=== PATIENT | female | born 1970 | race Caucasian/White ===

== ENCOUNTER 2018-04-15 19:29 | Emergency (ER) | payer OTHER ==
[~2018-04-15] VITALS: Ht 157.5 cm; Wt 146.1 kg
--- NOTE | 2018-04-15 19:32 | ED.ADGEN ---
Past History Past Medical History: Anemia, Anxiety, Arthritis, Asthma, Cancer, Constipation , GERD, Migraines, Other Additional Past Medical Histor: Morbid Obesity BMI 50. 0 - 59.9, Hx. Atypical CP, Chest wall pain, Past Medical History Compression fx- end plate T 12 Past Surgical History: No Surgical History Alcohol Use: None Drug Use: None Adult General Chief Complaint Chief Complaint ".. I fell .. and hurt this Rt shoulder and back... I was on the way to bathroom.. I was using my Dads walker.. I tripped and fell.. I still hurt..I took all the left over pain meds that I ve had.... and I still hurt.... "" ..I was recently at [facility] for two days... they did nothing for me.... ". " I fell on Sat. in the morning.. " HPI HPI Patient is a 47 year old female who presents with above hx and complaints chest wall and back pain. Pt. is somewhat uncooperative poor historian after taken multiple pain meds and muscle relaxers at home prior to arrival. Pt. recently admitted at [facility] for atypical chest and back pain. Pt. admitted on 2018 and discharged on per her hx today???. Pt. normally follows with Dr. Coy. Will attempt to get records from [facility]. Pt. currently reports back and chest pain as 20/10. States any movement is pain. Pt . pain appears to be Thoracic and Rt. Posterior Chest wall and Shoulder blade. Review of Systems Review of Systems Constitutional: Denies fever or chills [] Eyes: Denies change in visual acuity, redness, or eye pain [] HENT: Denies nasal congestion or sore throat [] Respiratory: Denies cough or shortness of breath []Complaints of Lt chest wall pain. Cardiovascular: No additional information not addressed in HPI [] GI: Denies abdominal pain, nausea, vomiting, bloody stools or diarrhea [] : Denies dysuria or hematuria [] Musculoskeletal: Complains of thoracic back pain or joint pain []Complaints of Lt scapular pain. Complaints of generalized weakness because of pain. Integument: Denies rash or skin lesions [] Neurologic: Denies headache, focal weakness or sensory changes [] Endocrine: Denies polyuria or polydipsia [] All other systems were reviewed and found to be within normal limits, except as documented in this note. Family History Family History No contributory Current Medications Current Medications Current Medications Medications (Trade) Dose Ordered Sig/Franci Start Time Stop Time Status Last Admin Dose Admin Aspirin (Children'S Aspirin) 324 mg 1X ONCE 04/15/18 20:15 04/15/18 20:16 DC 04/15/18 20:57 324 MG Enoxaparin Sodium (Lovenox 150mg Syringe) 150 mg ONCE ONCE 04/15/18 22:15 04/15/18 22:17 DC 04/15/18 22:24 150 MG Info (Do NOT chart on this entry -- for MONITORING) 1 each PRN DAILY PRN 04/15/18 20:15 04/15/18 23:33 DC Iohexol (Omnipaque 350 Mg/ml) 100 ml 1X ONCE 04/15/18 20:00 04/15/18 20:01 DC 04/15/18 20:28 100 ML Lactated Ringer's 1,000 ml @ 100 mls/hr Q10H 04/15/18 19:42 04/15/18 23:33 DC 04/15/18 20:57 100 MLS/HR Morphine Sulfate (Morphine 10mg Syringe) 10 mg 1X ONCE 04/15/18 20:15 04/15/18 20:16 DC 04/15/18 20:57 10 MG Allergies Allergies Allergies Coded Allergies Type Severity Reaction Last Updated Verified No Known Drug Allergies 04/15/18 No Physical Exam Physical Exam Constitutional: , no acute distress, appearance. of over sedation. When stimulated her pain is 100/10. Pt. does fall back to sleep . HENT: Normocephalic, atraumatic, bilateral external ears normal, oropharynx moist, no oral exudates, nose normal. [] Eyes: PERRLA, EOMI, conjunctiva normal, no discharge. [] Neck: Normal range of motion, no tenderness, supple, no stridor. [] Cardiovascular:Tachycardia Heart rate regular rhythm, no murmur [PMI to Lt. ] Lungs & Thorax: Bilateral breath sounds equal at apexes, with bibasilar crackles on auscultation [] Abdomen: Bowel sounds normal, soft, no tenderness, no masses, no pulsatile masses. Obese. Skin: Warm, dry, no erythema, no rash. [] Back: Mid Thoracic and Rt. shoulder tenderness, no CVA tenderness. [] Extremities: No tenderness, no cyanosis, no clubbing, ROM intact, bilateral ankle edema. [] Neurologic: Alert and oriented X 3, but appears very sedated, moves ext. on request, no gross focal deficits noted. []DTRs +2 patella and brachial. Psychologic: Affect anxious, appears over sedated., mood depressed Current Patient Data Vital Signs Vital Signs Date Time Temp Pulse Resp B/P (MAP) Pulse Ox O2 Delivery O2 Flow Rate FiO2 04/15/18 21:44 104 18 104/71 (82) 93 Room Air 04/15/18 19:29 99.8 Lab Results Laboratory Tests Test 04/15/18 20:15 White Blood Count 8.5 x10^3/uL (4.0-11.0) Red Blood Count 4.33 x10^6/uL (3.50-5.40) Hemoglobin 12.6 g/dL (12.0-15.5) Hematocrit 37.5 % (36.0-47.0) Mean Corpuscular Volume 87 fL (79-100) Mean Corpuscular Hemoglobin 29 pg (25-35) Mean Corpuscular Hemoglobin Concent 34 g/dL (31-37) Red Cell Distribution Width 13.7 % (11.5-14.5) Platelet Count 238 x10^3/uL (140-400) Neutrophils (%) (Auto) 84 % (31-73) H Lymphocytes (%) (Auto) 7 % (24-48) L Monocytes (%) (Auto) 8 % (0-9) Eosinophils (%) (Auto) 1 % (0-3) Basophils (%) (Auto) 0 % (0-3) Neutrophils # (Auto) 7.1 x10^3uL (1.8-7.7) Lymphocytes # (Auto) 0.6 x10^3/uL (1.0-4.8) L Monocytes # (Auto) 0.7 x10^3/uL (0.0-1.1) Eosinophils # (Auto) 0.1 x10^3/uL (0.0-0.7) Basophils # (Auto) 0.0 x10^3/uL (0.0-0.2) Prothrombin Time 10.5 SEC (9.4-11.4) Prothrombin Time INR 1.1 (0.9-1.1) PTT 30 SEC (23-33) D-Dimer (Verna) 2.37 mg/L (0.00-0.50) H Urine Collection Type Unknown Urine Color Yellow Urine Clarity Clear Urine pH 6.0 Urine Specific [place] >=1.030 Urine Protein 30 mg/dl (NEG-TRACE) Urine Glucose (UA) Neg mg/dL (NEG) Urine Ketones (Stick) 15 mg/dL (NEG) Urine Blood Neg (NEG) Urine Nitrite Neg (NEG) Urine Bilirubin Neg (NEG) Urine Urobilinogen Dipstick 2 mg/dL (0.2 mg/dL) Urine Leukocyte Esterase Neg (NEG) Urine RBC Occ /HPF (0-2) Urine WBC 1-4 /HPF (0-4) Urine Squamous Epithelial Cells Mod /LPF Urine Bacteria 0 /HPF (0-FEW) Urine Hyaline Casts Occ /HPF Urine Mucus Mod /LPF Sodium Level 132 mmol/L (136-145) L Potassium Level 3.8 mmol/L (3.5-5.1) Chloride Level 95 mmol/L (98-107) L Carbon Dioxide Level 27 mmol/L (21-32) Anion Gap 10 (6-14) Blood Urea Nitrogen 11 mg/dL (7-20) Creatinine 1.0 mg/dL (0.6-1.0) Estimated GFR (Cockcroft-Gault) 59.4 Glucose Level 103 mg/dL (70-99) H Calcium Level 8.9 mg/dL (8.5-10.1) Magnesium Level 1.9 mg/dL (1.8-2.4) Total Bilirubin 0.8 mg/dL (0.2-1.0) Direct Bilirubin 0.4 mg/dL (0.0-0.2) H Aspartate Amino Transferase (AST) 32 U/L (15-37) Alanine Aminotransferase (ALT) 35 U/L (14-59) Alkaline Phosphatase 98 U/L (46-116) Creatine Kinase 264 U/L (26-192) H Troponin I Quantitative < 0.017 ng/mL (0-0.055) IB-Ucl-Q-Type Natriuretic Peptide 341 pg/mL (0-124) H Total Protein 7.9 g/dL (6.4-8.2) Albumin 3.1 g/dL (3.4-5.0) L Lipase 56 U/L (73-393) L Urine Opiates Screen Pos (NEG) Urine Methadone Screen Neg (NEG) Urine Barbiturates Neg (NEG) Urine Phencyclidine Screen Neg (NEG) Urine Amphetamine/Methamphetamine Neg (NEG) Urine Benzodiazepines Screen Neg (NEG) Urine Cocaine Screen Neg (NEG) Urine Cannabinoids Screen Neg (NEG) Urine Ethyl Alcohol Neg (NEG) EKG EKG My interpretation of EKG shows a sinus tachycardia 110 bpm. There is some nonspecific anterior septal changes but no findings acute STEMI with contralateral changes.[] Radiology/Procedures Radiology/Procedures My interpretation of chest x-ray shows cardiomegaly. There does appear to be some linear atelectasis. CT shows no significant vertebral body loss or displaced fracture. Osteophytes, appears to have. In plate defect no one or T 12. No findings of PE. Does have bilateral atelectasis of lungs, chronic degenerative joint changes.[] See formal report when available. Course & Med Decision Making Course & Med Decision Making Pertinent Labs and Imaging studies reviewed. (See chart for details) Still awaiting records - [facility]. Pt. unable to stand or be ambulatory after meds. Discussed presentation, testing and tx plan with Dr. Prateek- will transfer to [facility] for further eval., possible orthro. consult, MRI. Pt. may need US to rule out DVT. No obvious PE on current CT. Formal report pending. [] Final Impression Final Impression 1. Hx. Fall[] Sat. 12/19 2. Atypical Chest Wall Pain 3. Thoracic Spine - Hx. T 12- L1 end plate compression fx. 4. Elevated D-dimer 2.32 5. Morbid Obesity 6. Over Sedation 7. Inability to Stand- and Ambulate due to back and chest wall pain 8. Malnutrition Alb. 3.1 9. Marked Deconditioning Dragon Disclaimer Dragon Disclaimer This electronic medical record was generated, in whole or in part, using a voice recognition dictation system. Dragon Disclaimer This chart was dictated in whole or in part using Voice Recognition software in a busy, high-work load, and often noisy Emergency Department environment. It may contain unintended and wholly unrecognized errors or omissions. Discharge Summary Visit Information Final Diagnosis Problems Medical Problems: (1) Back pain Status: Acute Brief Hospital Course Allergies Allergies Coded Allergies Type Severity Reaction Last Updated Verified No Known Drug Allergies 04/15/18 No Vital Signs Vital Signs Date Time Temp Pulse Resp B/P (MAP) Pulse Ox O2 Delivery O2 Flow Rate FiO2 04/15/18 21:44 104 18 104/71 (82) 93 Room Air 04/15/18 19:29 99.8 Lab Results Laboratory Tests Test 04/15/18 20:15 White Blood Count 8.5 x10^3/uL (4.0-11.0) Red Blood Count 4.33 x10^6/uL (3.50-5.40) Hemoglobin 12.6 g/dL (12.0-15.5) Hematocrit 37.5 % (36.0-47.0) Mean Corpuscular Volume 87 fL (79-100) Mean Corpuscular Hemoglobin 29 pg (25-35) Mean Corpuscular Hemoglobin Concent 34 g/dL (31-37) Red Cell Distribution Width 13.7 % (11.5-14.5) Platelet Count 238 x10^3/uL (140-400) Neutrophils (%) (Auto) 84 % (31-73) Lymphocytes (%) (Auto) 7 % (24-48) Monocytes (%) (Auto) 8 % (0-9) Eosinophils (%) (Auto) 1 % (0-3) Basophils (%) (Auto) 0 % (0-3) Neutrophils # (Auto) 7.1 x10^3uL (1.8-7.7) Lymphocytes # (Auto) 0.6 x10^3/uL (1.0-4.8) Monocytes # (Auto) 0.7 x10^3/uL (0.0-1.1) Eosinophils # (Auto) 0.1 x10^3/uL (0.0-0.7) Basophils # (Auto) 0.0 x10^3/uL (0.0-0.2) Prothrombin Time 10.5 SEC (9.4-11.4) Prothromb Time International Ratio 1.1 (0.9-1.1) Activated Partial Thromboplast Time 30 SEC (23-33) D-Dimer (Verna) 2.37 mg/L (0.00-0.50) Urine Collection Type Unknown Urine Color Yellow Urine Clarity Clear Urine pH 6.0 Urine Specific [place] >=1.030 Urine Protein 30 mg/dl (NEG-TRACE) Urine Glucose (UA) Neg mg/dL (NEG) Urine Ketones (Stick) 15 mg/dL (NEG) Urine Blood Neg (NEG) Urine Nitrite Neg (NEG) Urine Bilirubin Neg (NEG) Urine Urobilinogen Dipstick 2 mg/dL (0.2 mg/dL) Urine Leukocyte Esterase Neg (NEG) Urine RBC Occ /HPF (0-2) Urine WBC 1-4 /HPF (0-4) Urine Squamous Epithelial Cells Mod /LPF Urine Bacteria 0 /HPF (0-FEW) Urine Hyaline Casts Occ /HPF Urine Mucus Mod /LPF Sodium Level 132 mmol/L (136-145) Potassium Level 3.8 mmol/L (3.5-5.1) Chloride Level 95 mmol/L (98-107) Carbon Dioxide Level 27 mmol/L (21-32) Anion Gap 10 (6-14) Blood Urea Nitrogen 11 mg/dL (7-20) Creatinine 1.0 mg/dL (0.6-1.0) Estimated GFR (Cockcroft-Gault) 59.4 Glucose Level 103 mg/dL (70-99) Calcium Level 8.9 mg/dL (8.5-10.1) Magnesium Level 1.9 mg/dL (1.8-2.4) Total Bilirubin 0.8 mg/dL (0.2-1.0) Direct Bilirubin 0.4 mg/dL (0.0-0.2) Aspartate Amino Transf (AST/SGOT) 32 U/L (15-37) Alanine Aminotransferase (ALT/SGPT) 35 U/L (14-59) Alkaline Phosphatase 98 U/L (46-116) Creatine Kinase 264 U/L (26-192) Troponin I Quantitative < 0.017 ng/mL (0-0.055) OB-Wza-L-Type Natriuretic Peptide 341 pg/mL (0-124) Total Protein 7.9 g/dL (6.4-8.2) Albumin 3.1 g/dL (3.4-5.0) Lipase 56 U/L (73-393) Urine Opiates Screen Pos (NEG) Urine Methadone Screen Neg (NEG) Urine Barbiturates Neg (NEG) Urine Phencyclidine Screen Neg (NEG) Urine Amphetamine/Methamphetamine Neg (NEG) Urine Benzodiazepines Screen Neg (NEG) Urine Cocaine Screen Neg (NEG) Urine Cannabinoids Screen Neg (NEG) Urine Ethyl Alcohol Neg (NEG) Brief Hospital Course Ms. Appiah is a 47 old female who presented with atypical chest pain and mid back pain. Has end plate compression Fx L1/T12. Inability to ambulate because of pain- transfer to [facility] for further eval. Possible MRI. Transfer to Dr. Chandra. Discharge Information Condition at Discharge: Stable Disposition/Orders: D/C to Another Facility Dischare Medications Current Medications Aspirin (Children'S Aspirin) 324 mg 1X ONCE PO Last administered on 04/15/18at 20:57; Admin Dose 324 MG; Start 04/15/18 at 20:15; Stop 04/15/18 at 20:16; Status DC Lactated Ringer's 1,000 ml @ 100 mls/hr Q10H IV Last administered on at 20:57; Admin Dose 100 MLS/HR; Start 04/15/18 at 19:42; Stop 04/15/18 at 23: 33; Status DC Morphine Sulfate (Morphine 10mg Syringe) 10 mg 1X ONCE SQ Last administered on 04/15/18at 20:57; Admin Dose 10 MG; Start 04/15/18 at 20:15; Stop 04/15/18 at 20:16; Status DC Iohexol (Omnipaque 350 Mg/ml) 100 ml 1X ONCE IV Last administered on at 20:28; Admin Dose 100 ML; Start 04/15/18 at 20:00; Stop 04/15/18 at 20:01; Status DC Info (Do NOT chart on this entry -- for MONITORING) 1 each PRN DAILY PRN MC SEE COMMENTS; Start 04/15/18 at 20:15; Stop 04/15/18 at 23:33; Status DC Enoxaparin Sodium (Lovenox 150mg Syringe) 150 mg ONCE ONCE SQ Last administered on 04/15/18at 22:24; Admin Dose 150 MG; Start 04/15/18 at 22:15; Stop 04/15/18 at 22:17; Status DC Active Scripts Active Reported No Known Medications Prior To Admisstion (Info) Each 1 Each RICH PEPPER MD Apr 15, 2018 19:32
[2018-04-15] MEDS ORDERED: CONTRAST GIVEN MC PRN (20:15)
[2018-04-15] MEDS: IOHEXOL 350 MG/ML 100 ML VIAL. IV ONE (20:28)
[2018-04-15 20:36] LABS: BASO % 0 % (0-3); EOS # 0.1 x10^3/uL (0.0-0.7); EOS % 1 % (0-3); HEMATOCRIT 37.5 % (36.0-47.0); HEMOGLOBIN 12.6 g/dL (12.0-15.5); LYMPH # 0.6 x10^3/uL (1.0-4.8); LYMPH % 7 % (24-48); MEAN CORPUSCULAR HEMOGLOBIN 29 pg (25-35); MEAN CORPUSCULAR HGB CONC 34 g/dL (31-37); MEAN CORPUSCULAR VOLUME 87 fL (79-100); MONO # 0.7 x10^3/uL (0.0-1.1); MONO % 8 % (0-9); NEUT # 7.1 x10^3uL (1.8-7.7); NEUT % 84 % (31-73); PLATELET COUNT 238 x10^3/uL (140-400); RED BLOOD COUNT 4.33 x10^6/uL (3.50-5.40); RED CELL DISTRIBUTION WIDTH 13.7 % (11.5-14.5); WHITE BLOOD COUNT 8.5 x10^3/uL (4.0-11.0)
[2018-04-15 20:39] LABS: BARBITURATES NEG (NEG); BENZODIAZEPINES NEG (NEG); CANNABINOIDS NEG (NEG); COCAINE NEG (NEG); METHADONE NEG (NEG); OPIATES POS (NEG); PHENCYCLIDINE NEG (NEG)
[2018-04-15 20:43] LABS: COLOR,URINE YELLOW
[2018-04-15 20:44] LABS: BACTERIA,URINE 0 /HPF (0-FEW); BILIRUBIN,URINE NEG (NEG); CLARITY,URINE CLEAR; GLUCOSE,URINE NEG (NEG); HYALINE CASTS, URINE OCC /HPF; NITRITE,URINE NEG (NEG); RBC,URINE OCC /HPF (0-2); SQUAMOUS EPITHELIAL CELL,UR MOD /LPF; UROBILINOGEN,URINE 2 mg/dL (0.2 mg/dL)
[2018-04-15 20:46] LABS: AMPHETAMINE/METHAMPHETAMINE NEG (NEG)
[2018-04-15 20:55] LABS: ALBUMIN 3.1 g/dL (3.4-5.0); CALCIUM 8.9 mg/dL (8.5-10.1); DIRECT BILIRUBIN 0.4 mg/dL (0.0-0.2); GFR 59.4; MAGNESIUM 1.9 mg/dL (1.8-2.4); POTASSIUM 3.8 mmol/L (3.5-5.1); TOTAL BILIRUBIN 0.8 mg/dL (0.2-1.0); TOTAL PROTEIN 7.9 g/dL (6.4-8.2)
[2018-04-15] MEDS: IV RINGERS SOLUTION,LACTATED 1,000 ML IV SCH (20:57)
[2018-04-15] MEDS: ASPIRIN 81 MG TAB.CHEW PO ONE (20:57)
[2018-04-15] MEDS: MORPHINE SULFATE 10 MG/ML SYRINGE. SQ ONE (20:57)
--- NOTE | 2018-04-15 21:21 | RAD ---
CT THORACIC SPINE WO CONTRAST, CT ANGIOGRAPHY CHEST dated 04/15/2018 8:20 PM Indication:UPPER BACK PAIN- INBETWEEN SHOULDER BLADES, FALL
HX COMPRESSION FRACTURE - UNKNOWN LEVEL Comparison: CT chest 12/22/2011 Technique: Thin section CT images were performed using an infusion of 100 mL Omnipaque 350. MIP reconstructions were obtained. One or more of the following individualized dose reduction techniques were utilized for this examination: 1. Automated exposure control 2. Adjustment of the mA and/or kV according to patient size 3. Use of iterative reconstruction technique Findings: There is mild atelectasis in the lungs. They otherwise appear clear. The central airways show no obstruction. No enlarged lymph nodes are seen. The thoracic aorta is normal in caliber without evidence of dissection. Evaluation of the pulmonary arterial tree is mildly affected by respiratory motion artifact. Contrast opacification is moderate. No abnormal filling defect is seen extending to the subsegmental branch level. Images through the upper abdomen show some gallbladder distention. No other abnormality is seen. CT thoracic spine: Alignment is normal. There is no loss of vertebral body height or other evidence for fracture. No destructive process is seen. There are prominent anterior and lateral osteophytes through the mid thoracic levels. Evaluation of the soft tissue components of the canal is limited without intrathecal contrast. There is a chronic appearing superior endplate defect of L1. IMPRESSION: No evidence of pulmonary embolism. Mild atelectasis in the lungs. No other acute findings. CT thoracic spine shows degenerative changes without apparent acute abnormality. Electronically signed by: Ty Elizabeth Jr., MD (04/15/2018 9:17 PM) [facility]
--- NOTE | 2018-04-15 21:22 | RAD ---
AP portable chest 04/15/2018. Reason for exam: Upper back and chest pain. No infiltrate or effusion is seen. Heart size and pulmonary vascularity appear grossly normal. IMPRESSION: No acute findings. Electronically signed by: Ty Elizabeth Jr., MD (04/15/2018 9:18 PM) [facility]
[2018-04-15 21:44] VITALS: BP 104/71
[2018-04-15] MEDS: ENOXAPARIN ** NOTE DOSE ** SYRINGE SQ ONE (22:24)
--- NOTE | 2018-04-16 06:25 | EKG ---
[address] [address] Test Date: 2018-04-15 Test Time: 19:48:32 Pat Name: CHHAYA CHRISTENSEN Department: Room: Gender: F Diabetes Specialist: MONIK : [id number] Requested By: RICH PEPPER Order Number: [id number] Reading MD: Eliezer Turner MD Measurements Intervals [place] Rate: 110 P: ND: QRS: 18 QRSD: 90 T: 20 QT: 346 QTc: 474 Interpretive Statements SINUS TACHYCARDIA Electronically Signed On 04-17-2018 11:10:21 [employer] by Eliezer Turner MD
== END 2018-04-15 22:49 | disposition short-term general hospital (02) ==
LOC: ER 19:29
DX: R07.89 Other chest pain (principal); M54.6 Pain in thoracic spine; G89.11 Acute pain due to trauma; R79.1 Abnormal coagulation profile; E66.01 Morbid (severe) obesity due to excess calories; E46 Unspecified protein-calorie malnutrition; F41.9 Anxiety disorder, unspecified; M19.90 Unspecified osteoarthritis, unspecified site; J45.909 Unspecified asthma, uncomplicated; K21.9 Gastro-esophageal reflux disease without esophagitis; G43.909 Migraine, unspecified, not intractable, without status migrainosus; Z68.43 Body mass index [BMI] 50.0-59.9, adult; Z86.2 Personal history of diseases of the blood and blood-forming organs and certain disorders involving the immune mechanism; W01.0XXA Fall on same level from slipping, tripping and stumbling without subsequent striking against object, initial encounter; Y93.01 Activity, walking, marching and hiking; Y92.89 Other specified places as the place of occurrence of the external cause; Y99.8 Other external cause status
CPT/HCPCS: 36415; 71045; 71275; 72128; 80048; 80076; 80307; 81001; 82550; 83690; 83735; 83880; 84443; 84484; 85025; 85379; 85610; 85730; 93005; 96372; 99285; J1650; J2270; J7120; Q9967

== ENCOUNTER 2019-08-13 13:14 | Emergency (ER) | payer OTHER ==
[~2019-08-13] VITALS: Ht 157.5 cm; Wt 156.0 kg
--- NOTE | 2019-08-13 13:37 | PHYS DOC ---
Past History Past Medical History: Anemia, Anxiety, Arthritis, Asthma, Cancer, Constipation, GERD, Migraines, Other Additional Past Medical Histor: Morbid Obesity BMI 50. 0 - 59.9, Hx. Atypical CP, Chest wall pain, Past Surgical History: No Surgical History Smoking: Non-smoker Alcohol Use: None Drug Use: None General Adult EDM: Chief Complaint: CHEST PAIN HPI: HPI: Patient is a 49-year-old female who presents to the emergency department for evaluation of anterior chest pain which has been present for the past 10 days. She states the pain is present with physical exertion, and associated with some shortness of breath. She states the pain is precipitated by coughing. She has had a cough for the past 10 days, mostly nonproductive. She has also had some myalgias. She denies any pleuritic pain, but does report a sensation of tachycardia. She has not had any fevers. Symptoms have been present for the past 10 days. She was put on a Z-Pavel for her cough but her symptoms did not improve. There are no other alleviating or exacerbating factors to her symptoms. Review of Systems: Review of Systems: Constitutional: Denies fever or chills Eyes: Denies change in visual acuity HENT: Denies nasal congestion or sore throat Respiratory: As per HPI Cardiovascular: As per HPI GI: Denies abdominal pain, nausea, vomiting, bloody stools or diarrhea : Denies dysuria Musculoskeletal: Denies back pain or joint pain Integument: Denies rash Neurologic: Denies headache, focal weakness or sensory changes Endocrine: Denies polyuria or polydipsia Lymphatic: Denies swollen glands Psychiatric: Denies depression or anxiety Heart Score: HEART Score for Chest Pain: HEART Score for Chest Pain Response (Comments) Value History Slighlty/Non-Suspicious 0 ECG Nonspecific Repolarizatio 1 Age >45 - < 65 1 Risk Factors 1 or 2 Risk Factors 1 Troponin < Normal Limit 0 Total 3 Risk Factors: Risk Factors: DM, Current or recent (<one month) smoker, HTN, HLP, family history of CAD, obesity. Risk Scores: Score 0 - 3: 2.5% MACE over next 6 weeks - Discharge Home Score 4 - 6: 20.3% MACE over next 6 weeks - Admit for Clinical Observation Score 7 - 10: 72.7% MACE over next 6 weeks - Early Invasive Strategies Allergies: Allergies: Allergies Coded Allergies Type Severity Reaction Last Updated Verified No Known Drug Allergies 04/15/18 No Physical Exam: PE: PHYSICAL EXAM: CONSTITUTIONAL: Well developed, well nourished HEAD: normocephalic, atraumatic EENT: PERRL, EOMI. Conjunctivae normal color, sclerae non-icteric; moist mucous membranes. NECK: Supple, non-tender; no meningismus. LUNGS: Lungs CTA, breathing even and unlabored. Normal air movement. A dry cough is present. HEART: Regular rate and rhythm, no murmur CHEST: No deformity; palpation of the anterior chest wall reproduces the patient's pain. ABDOMEN: The abdomen is soft, and non-tender, no masses or bruits. EXTREM: Normal ROM; no deformity, no calf tenderness. Normal pulses palpable in all extremities. There is no pedal edema. SKIN: No rash; no diaphoresis NEURO: Alert; normal speech and cognition; CN's grossly intact; strength grossly intact without focal deficit. BACK: No CVA TTP. EKG: EKG: Normal sinus rhythm at a rate of 76 bpm, normal axis, normal intervals, nonspecific ST/T changes are present in the lateral limb leads. There are no acute ischemic changes noted. [] Radiology/Procedures: Radiology/Procedures: PROCEDURE: PORTABLE CHEST 1V AP view of the chest. Comparison: Chest radiograph and CT dated 04/15/2018. Indication: Chest pain Findings: The patient is slightly rotated to the right. Normal lung volume. Mild bilateral interstitial opacities are similar to prior. No focal airspace disease. Unchanged pulmonary vascular fullness. No pleural effusion. No pneumothorax. The cardiomediastinal silhouette is normal in appearance. The great vessels are normal. No acute osseous abnormality. Impression: Mild bilateral interstitial opacities are similar prior. No new consolidation. Unchanged pulmonary vascular fullness. [] Course & Med Decision Making: Course & Med Decision Making Pertinent Labs and Imaging studies reviewed. (See chart for details) [] 2:40 PM: Patient remains stable. I discussed test results, the need for close follow-up, and return precautions. Clinical suspicion for acute coronary syndrome is low, given the patient's low risk factor profile, prolonged duration of symptoms and reproducible nature of symptoms, associated with cough. Suspicion for COVID is also low but the patient will be tested per her request. Dragon Disclaimer: Dorys Disclaimer: This electronic medical record was generated, in whole or in part, using a voice recognition dictation system. Departure Departure: Impression: Primary Impression: Cough Additional Impression: Atypical chest pain Disposition: 01 HOME, SELF-CARE Condition: STABLE Referrals: TRINY MORAN (PCP) Patient Instructions: Chest Pain (Nonspecific), Cough, Adult Additional Instructions: Thank you for visiting [facility]. We appreciate you trusting us with your care. If any additional problems come up don't hesitate to return to visit us. Please follow up with your primary care provider so they can plan additional care if needed and know about the problem that you had. If symptoms worsen come back to the Emergency Department. Any concerning symptoms that start such as chest pain, shortness of air, weakness or numbness on one side of the body, running high fevers or any other concerning symptoms return to the ER. You have a viral syndrome which may include symptoms like muscle aches, fevers, chills, runny nose, cough, sneezing, sore throat, vomiting, or diarrhea. One of the potential viruses that you may have is SARS-CoV-2, the virus that causes COVID-19, also known as the Coronavirus. You are just as likely to have a different viral infection such as the common cold, flu, etc. Most patients with the Coronavirus have mild symptoms and recover on their own. Resting, staying hydrated, and sleep from known cases can be helpful. As of todays visit, you are well enough to go home and treat your symptoms with oral fluids and over the counter medications. Coronavirus testing is not performed on most people with mild symptoms who are being discharged from the emergency department. If Coronavirus testing was performed the results will not be available for possibly up to 2-3 days. If your result is positive you will be contacted. Please follow the following precautions at home: 1) Stay home except to get medical care. 2) As advised by the CDC we recommend you stay in your home and minimize contact with other people. We do not want you to spread the infection. 3) Those who are older or have significant medical issues may have more severe symptoms from this infection. We recommend self-isolation,FOR AT LEAST 7 DAYS after your 1st day of symptoms. AFTER you feel better please wait AT LEAST ANOTHER WEEK before returning to regular activities and being around other people! 4) IF you become sicker and have difficulty breathing, chest pain, unable to eat/drink, severe vomiting, diarrhea, or weakness you may need to return to the Emergency Department. 5) You should restrict activities outside your home, except for getting medical care. DO NOT go to work, school, or public areas. Avoid using public transportation, ride sharing, or taxis. 6) Separate yourself from other people in your home. You should use a separate bathroom if possible. 7) Avoid sharing personal household items such as dishes, cups, eating utensils, towels, etc. 8) Clean all high touch surfaces every day (door knobs, counter tops, etc). Use a household cleaning spray or wipe per label instructions. 9) Clean your hands often. Wash your hands with soap and water for at least 20 seconds. 10) Cover your mouth and nose with a tissue when you cough or sneeze. 11) Throw used tissues in a trash can and immediately wash your hands. For additional resources please visit the CDC website or the [facility] ([phone]). ASIF ESCOBEDO MD August 13, 2019 13:37
[2019-08-13] MEDS ORDERED: ASPIRIN CHEWABLE 81 MG TABLET. PO ONE (13:45)
[2019-08-13 13:49] VITALS: BP 124/78
[2019-08-13 13:57] LABS: BASO % 1 % (0-3); EOS # 0.1 x10^3/uL (0.0-0.7); EOS % 3 % (0-3); HEMATOCRIT 40.2 % (36.0-47.0); HEMOGLOBIN 12.9 g/dL (12.0-15.5); LYMPH # 1.9 x10^3/uL (1.0-4.8); LYMPH % 34 % (24-48); MEAN CORPUSCULAR HEMOGLOBIN 28 pg (25-35); MEAN CORPUSCULAR HGB CONC 32 g/dL (31-37); MEAN CORPUSCULAR VOLUME 87 fL (79-100); MONO # 0.4 x10^3/uL (0.0-1.1); MONO % 8 % (0-9); NEUT # 2.9 x10^3uL (1.8-7.7); NEUT % 54 % (31-73); PLATELET COUNT 302 x10^3/uL (140-400); WHITE BLOOD COUNT 5.4 x10^3/uL (4.0-11.0)
--- NOTE | 2019-08-13 14:00 | RAD ---
AP view of the chest. Comparison: Chest radiograph and CT dated 04/15/2018. Indication: Chest pain Findings: The patient is slightly rotated to the right. Normal lung volume. Mild bilateral interstitial opacities are similar to prior. No focal airspace disease. Unchanged pulmonary vascular fullness. No pleural effusion. No pneumothorax. The cardiomediastinal silhouette is normal in appearance. The great vessels are normal. No acute osseous abnormality. Impression: Mild bilateral interstitial opacities are similar prior. No new consolidation. Unchanged pulmonary vascular fullness. Electronically signed by: Travon Peña MD (08/13/2019 1:57 PM) [id number]
[2019-08-13 14:06] LABS: CALCIUM 9.1 mg/dL (8.5-10.1); CREATININE 0.8 mg/dL (0.6-1.0); GFR 76.2
[2019-08-13 14:20] LABS: ALBUMIN 3.3 g/dL (3.4-5.0); ALBUMIN/GLOBULIN RATIO 0.8 (1.0-1.7); MAGNESIUM 2.1 mg/dL (1.8-2.4); TOTAL BILIRUBIN 0.3 mg/dL (0.2-1.0); TOTAL PROTEIN 7.2 g/dL (6.4-8.2)
--- NOTE | 2019-08-14 03:55 | EKG ---
[address] [address] Test Date: 2019-08-13 Test Time: 13:25:08 Pat Name: CHHAYA CHRISTENSEN Department: Room: Gender: F [employer] Technician: ERICA : 1970 Requested By: ASIF ESCOBEDO Order Number: [id number] Reading MD: Prieto Dickens Measurements Intervals [place] Rate: 76 P: 0 TN: 148 QRS: -5 QRSD: 90 T: 93 QT: 380 QTc: 427 Interpretive Statements SINUS RHYTHM LEFTWARD AXIS LOW LIMB LEAD VOLTAGE T ABNORMALITY IN HIGH LATERAL LEADS ABNORMAL ECG Electronically Signed On 08-14-2019 8:26:20 CDT by Prieto Dickens
== END 2019-08-13 15:00 | disposition home or self-care (01) ==
LOC: ER 13:14
DX: R07.89 Other chest pain (principal); R05 Cough; Z20.828 Contact with and (suspected) exposure to other viral communicable diseases; M19.90 Unspecified osteoarthritis, unspecified site; J45.909 Unspecified asthma, uncomplicated; K21.9 Gastro-esophageal reflux disease without esophagitis; G43.909 Migraine, unspecified, not intractable, without status migrainosus; E66.01 Morbid (severe) obesity due to excess calories; Z86.2 Personal history of diseases of the blood and blood-forming organs and certain disorders involving the immune mechanism; Z68.43 Body mass index [BMI] 50.0-59.9, adult
CPT/HCPCS: 36415; 71045; 80053; 83690; 83735; 83880; 84484; 85025; 85379; 85610; 85730; 87635; 93005; 99285

== ENCOUNTER 2019-08-23 23:56 | Emergency (ER) | payer OTHER ==
[~2019-08-23] VITALS: Ht 157.5 cm; Wt 156.0 kg
[2019-08-24 00:06] VITALS: BP 139/86
[2019-08-24] MEDS ORDERED: DIPH,PERTUSS(ACELL),TET VAC/PF 0.5 ML SYRINGE. VAX IM ONE ×2 (00:14→00:15)
--- NOTE | 2019-08-24 00:24 | PHYS DOC ---
Past History Past Medical History: A-Fib, Arthritis, Asthma Additional Past Medical Histor: Morbid Obesity BMI 50. 0 - 59.9, Hx. Atypical CP, Chest wall pain, Past Surgical History: Smoking: Non-smoker Alcohol Use: None Drug Use: None General Adult EDM: Chief Complaint: LACERATION/AVULSION HPI: HPI: "..We are in the process of moving to [place]... So we had a bunch of picture frames and I slipped on some water and hit my knee on the picture frame and broken glass... Bled like crazy..." Patient is a 49 year old female who presents with a 10 cm laceration of Rt. knee. Currently has good hemostasis. Laceration is gaping into the sub cutaneous area. Patient does not remember her last tetanus but probably in excess of 10 years. Patient is able to do straight leg lift. Is able to do range of motion when it was irrigated. Does have a significant avulses portion which appears to be dusky or avascular. Distal neurovascular intact. Patient denies any history of immunosuppression. No history of recent travel outside the [facility]. She is in the process of moving to [place]. Pt. normally follows with Karen. Review of Systems: Review of Systems: Constitutional: Denies fever or chills Eyes: Denies change in visual acuity HENT: Denies nasal congestion or sore throat Respiratory: Denies cough or shortness of breath Cardiovascular: Denies chest pain or edema GI: Denies abdominal pain, nausea, vomiting, bloody stools or diarrhea : Denies dysuria Musculoskeletal: Denies back pain or joint pain Integument: Complaints of right knee laceration Neurologic: Denies headache, focal weakness or sensory changes Endocrine: Denies polyuria or polydipsia Lymphatic: Denies swollen glands Psychiatric: Denies depression or anxiety Heart Score: Risk Factors: Risk Factors: DM, Current or recent (<one month) smoker, HTN, HLP, family history of CAD, obesity. Risk Scores: Score 0 - 3: 2.5% MACE over next 6 weeks - Discharge Home Score 4 - 6: 20.3% MACE over next 6 weeks - Admit for Clinical Observation Score 7 - 10: 72.7% MACE over next 6 weeks - Early Invasive Strategies Family History: Family History: Noncontributory to presentation Current Medications: Current Meds: Current Medications Medications (Trade) Dose Ordered Sig/Franci Start Time Stop Time Status Last Admin Dose Admin Diphtheria/ Pertussis/Tetanus Vacc (ADACEL TDap SYRINGE) 0.5 ml ONCE ONCE 08/24/19 00:15 08/24/19 00:16 UNV 08/24/19 00:15 0.5 ML Lidocaine HCl 20 ml 1X ONCE 08/24/19 00:30 08/24/19 00:31 08/24/19 00:13 20 ML Tetanus/ Diphtheria Toxoids Adsorbed (Tenivac Vial) 0.5 ml ONCE ONCE 08/24/19 00:30 08/24/19 00:15 DC Allergies: Allergies: Allergies Coded Allergies Type Severity Reaction Last Updated Verified No Known Drug Allergies 04/15/18 No Physical Exam: PE: Constitutional: Moderate acute distress, non-toxic appearance. [] HENT: Normocephalic, atraumatic, bilateral external ears normal, oropharynx moist, no oral exudates, nose normal. [] Eyes: PERRLA, EOMI, conjunctiva normal, no discharge. [] Neck: Normal range of motion, no tenderness, supple, no stridor. [] Cardiovascular:Heart rate regular rhythm, no murmur [] Lungs & Thorax: Bilateral breath sounds clear to auscultation [] Abdomen: Bowel sounds normal, soft, no tenderness, no masses, no pulsatile masses. Obese. Old surgery scar. Skin: Warm, dry, no erythema, no rash. 10 cm laceration right knee Back: No tenderness, no CVA tenderness. [] Extremities: Right knee tenderness, no cyanosis, no clubbing, ROM intact, no edema. [] Right knee laceration as per HPI Neurologic: Alert and oriented X 3, normal motor function, normal sensory function, no focal deficits noted. [] Psychologic: Affect normal, judgement normal, mood normal. [] Current Patient Data: Vital Signs: Vital Signs Date Time Temp Pulse Resp B/P (MAP) Pulse Ox O2 Delivery O2 Flow Rate FiO2 08/24/19 00:06 98.5 72 18 139/86 (103) 98 Room Air EKG: EKG: [] Radiology/Procedures: Radiology/Procedures: [][address] [place] [id number] IMAGING REPORT Signed PATIENT: CHHAYA CHRISTENSEN LACCOUNT: [id number] : 1970 LOCATION: ER AGE: 49 SEX: F EXAM STATUS: REG ER ORD. PHYSICIAN: RICH PEPPER MD REASON: CUT RIGHT KNEE ON GLASS PROCEDURE: KNEE BILAT 4V 4 view bilateral knee radiographs 08/24/2019 CLINICAL HISTORY: Cut knee on glass. AP, lateral, oblique and sunrise portable digital radiographs of both knees were obtained. No fracture or dislocation of either knee is seen. No radiopaque foreign body is noted. Irregularity of the anterior soft tissue of the right knee is seen which likely reflects a laceration. Mild to moderate degenerative changes are seen involving the medial compartments of both knees, left greater than right. Mild to moderate enthesophyte formation is seen involving the anterior patella bilaterally. There is no radiographic evidence of a joint effusion. IMPRESSION: No fracture or radiopaque foreign body is seen. Electronically signed by: Sim Figueroa MD (08/24/2019 1:07 AM) [id number] DICTATED AND SIGNED BY: SIM FIGUEROA MD DATE: 08/24/197 CC: RICH PEPPER MD; TRINY MORAN ~ Course & Med Decision Making: Course & Med Decision Making Pertinent Labs and Imaging studies reviewed. (See chart for details) Laceration-laceration irrigated with normal saline under pressure and range of motion. Betadine applied the edge of laceration. Lidocaine with epi to wound edges. Irrigated laceration in range of motion with NS. Laceration closed with subcutaneous 4-0 Vicryl x8 internal, and 12 external.. Pt. then 24 sarah for final closure. Dressing applied. Jay wrap. Patient keep laceration clean and dry. One 1/2 of Winston out in 10 days. Remainder of sarah out at day 15. Patient apply Polysporin 4 times a day. Jay wrap to wound area. The patient return if any concerns. Large avulsed flap may cause dehiscence because of flap is dusky. Foreign body precautions given. Scar may need revision. Patient warned wound is high risk for poor closure because of avulses portion of laceration appears to be avascular. Winston appear to be holding on ROM after closure. [] Impression- 1. Avulsion flap- right knee laceration 10 cm 2. Chronic DJD bilateral Knee pain 3. Morbid Obesity Dragon Disclaimer: Dragon Disclaimer: This electronic medical record was generated, in whole or in part, using a voice recognition dictation system. Departure Departure: Disposition: 01 HOME/RESIDENCE PRIOR TO ADM Condition: STABLE Referrals: TRNIY MORAN (PCP) Scripts Hydrocodone/Ibuprofen (HYDROCODONE-IBUPROFEN 7.5-200 ) 1 Each Tablet 1 TAB PO PRN Q6HRS PRN for PAIN, #30 TAB 0 Refills Prov: RICH PEPPER MD 08/24/19 Dragon Disclaimer This chart was dictated in whole or in part using Voice Recognition software in a busy, high-work load, and often noisy Emergency Department environment. It may contain unintended and wholly unrecognized errors or omissions. Dragon Disclaimer This chart was dictated in whole or in part using Voice Recognition software in a busy, high-work load, and often noisy Emergency Department environment. It may contain unintended and wholly unrecognized errors or omissions. RICH PEPPER MD August 24, 2019 00:24
[2019-08-24] MEDS ORDERED: LIDOCAINE 2% 20 ML VIAL. IJ ONE (00:30)
[2019-08-24] MEDS ORDERED: TETANUS AND DIPHTHERIA TOX/PF 0.5 ML VIAL. VAX IM ONE (00:30)
[2019-08-24] MEDS ORDERED: BACITRACIN ZINC TOPICAL OINT PACKET. TP ONE ×2 (00:30)
--- NOTE | 2019-08-24 01:10 | RAD ---
4 view bilateral knee radiographs 08/24/2019 CLINICAL HISTORY: Cut knee on glass. AP, lateral, oblique and sunrise portable digital radiographs of both knees were obtained. No fracture or dislocation of either knee is seen. No radiopaque foreign body is noted. Irregularity of the anterior soft tissue of the right knee is seen which likely reflects a laceration. Mild to moderate degenerative changes are seen involving the medial compartments of both knees, left greater than right. Mild to moderate enthesophyte formation is seen involving the anterior patella bilaterally. There is no radiographic evidence of a joint effusion. IMPRESSION: No fracture or radiopaque foreign body is seen. Electronically signed by: Sim Figueroa MD (08/24/2019 1:07 AM) [id number]
[2019-08-24] MEDS ORDERED: HYDR-1179 PO (01:23)
[2019-08-24] MEDS ORDERED: HYDROcodon/IBUPROFEN 7.5/200MG 1 TAB TABLET PO ONE (01:30)
== END 2019-08-24 01:34 | disposition home or self-care (01) ==
LOC: ER 23:56
DX: S81.011A Laceration without foreign body, right knee, initial encounter (principal); I48.91 Unspecified atrial fibrillation; M19.90 Unspecified osteoarthritis, unspecified site; J45.909 Unspecified asthma, uncomplicated; E66.01 Morbid (severe) obesity due to excess calories; Z68.43 Body mass index [BMI] 50.0-59.9, adult; W25.XXXA Contact with sharp glass, initial encounter; Y93.89 Activity, other specified; Y92.89 Other specified places as the place of occurrence of the external cause; Y99.8 Other external cause status
CPT/HCPCS: 12004; 73564; 90471; 90715; 99283; J2001

== ENCOUNTER 2019-08-30 08:39 | Emergency (ER) | payer OTHER ==
[~2019-08-30] VITALS: Ht 157.5 cm; Wt 156.0 kg
[~2019-08-30 08:39] MED LIST: HYDR-1179 PO
[2019-08-30 08:53] VITALS: BP 136/90
[2019-08-30] MEDS ORDERED: CEPH-264 PO (09:09)
--- NOTE | 2019-08-30 09:09 | PHYS DOC ---
Past History Past Medical History: A-Fib, Arthritis, Asthma Additional Past Medical Histor: Morbid Obesity BMI 50. 0 - 59.9, Hx. Atypical CP, Chest wall pain, Past Surgical History: Smoking: Non-smoker Alcohol Use: None Drug Use: None General Adult EDM: Chief Complaint: WOUND CHECK HPI: HPI: 49-year-old female presents with concern about cellulitis. She had a laceration of the right knee area about 7 days ago. Over the last 3 days, it is gotten more erythematous and warm to the touch. She has had some thin drainage. They told her if it looked like that she should come in to the hospital for evaluation of infection. She denies fever chills. She has no other concerns or complaints at this time. Review of Systems: Review of Systems: Constitutional: Denies fever or chills Eyes: Denies change in visual acuity HENT: Denies nasal congestion or sore throat Respiratory: Denies cough or shortness of breath Cardiovascular: Denies chest pain or edema GI: Denies abdominal pain, nausea, vomiting, bloody stools or diarrhea : Denies dysuria Musculoskeletal: Denies back pain or joint pain Integument: Cellulitis right knee Neurologic: Denies headache, focal weakness or sensory changes Endocrine: Denies polyuria or polydipsia Lymphatic: Denies swollen glands Psychiatric: Denies depression or anxiety Heart Score: Risk Factors: Risk Factors: DM, Current or recent (<one month) smoker, HTN, HLP, family history of CAD, obesity. Risk Scores: Score 0 - 3: 2.5% MACE over next 6 weeks - Discharge Home Score 4 - 6: 20.3% MACE over next 6 weeks - Admit for Clinical Observation Score 7 - 10: 72.7% MACE over next 6 weeks - Early Invasive Strategies Allergies: Allergies: Allergies Coded Allergies Type Severity Reaction Last Updated Verified No Known Drug Allergies 04/15/18 No Physical Exam: PE: Constitutional: Well developed, well nourished, morbidly obese, no acute distress, non-toxic appearance. [] HENT: Normocephalic, atraumatic, bilateral external ears normal, oropharynx moist, no oral exudates, nose normal. [] Eyes: PERRLA, EOMI, conjunctiva normal, no discharge. [] Neck: Normal range of motion, no tenderness, supple, no stridor. [] Cardiovascular:Heart rate regular rhythm, no murmur [] Lungs & Thorax: Bilateral breath sounds clear to auscultation [] Abdomen: Bowel sounds normal, soft, no tenderness, no masses, no pulsatile masses. [] Skin: V-shaped wound with sutures and sarah in the right lateral knee, 4 cm x 4 cm erythematous, warm area of skin without obvious abscess [] Back: No tenderness, no CVA tenderness. [] Extremities: No tenderness, no cyanosis, no clubbing, ROM intact, no edema. [] Neurologic: Alert and oriented X 3, normal motor function, normal sensory function, no focal deficits noted. [] Psychologic: Affect normal, judgement normal, mood normal. [] Current Patient Data: Vital Signs: Vital Signs Date Time Temp Pulse Resp B/P (MAP) Pulse Ox O2 Delivery O2 Flow Rate FiO2 08/30/19 08:53 98.6 87 22 136/90 (105) 98 Room Air EKG: EKG: [] Radiology/Procedures: Radiology/Procedures: [] Course & Med Decision Making: Course & Med Decision Making Pertinent Labs and Imaging studies reviewed. (See chart for details) The patient was placed on Cipro. The wound does appear to have superficial cellulitis infection. I will switch her to Keflex 500 mg 3 times daily. She is stable for discharge at this time. [] Dragon Disclaimer: Dragon Disclaimer: This electronic medical record was generated, in whole or in part, using a voice recognition dictation system. Departure Departure: Impression: Primary Impression: Cellulitis of right knee Disposition: HOME/RESIDENCE PRIOR TO ADM Condition: STABLE Referrals: TRINY MORAN (PCP) Patient Instructions: Cellulitis, [id number] Scripts Cephalexin (KEFLEX) 500 Mg Capsule 1 CAP PO TID for cellulitis for 7 Days, #21 CAP 0 Refills Prov: RIVAS TATE DO 08/30/19 RIVAS TATE DO August 30, 2019 09:09
== END 2019-08-30 09:10 | disposition home or self-care (01) ==
LOC: ER 08:39
DX: L03.115 Cellulitis of right lower limb (principal); I48.91 Unspecified atrial fibrillation; M19.90 Unspecified osteoarthritis, unspecified site; J45.909 Unspecified asthma, uncomplicated; E66.01 Morbid (severe) obesity due to excess calories; Z68.43 Body mass index [BMI] 50.0-59.9, adult
CPT/HCPCS: 99283

== ENCOUNTER 2019-09-03 10:52 | Emergency (ER) | payer OTHER ==
[~2019-09-03] VITALS: Ht 157.5 cm; Wt 156.0 kg
[~2019-09-03 10:52] MED LIST changes: +CEPH-264 PO
[2019-09-03 11:04] VITALS: BP 164/87
--- NOTE | 2019-09-03 11:26 | PHYS DOC ---
Past History Past Medical History: A-Fib, Arthritis, Asthma Additional Past Medical Histor: Morbid Obesity BMI 50. 0 - 59.9, Hx. Atypical CP, Chest wall pain, Past Surgical History: Smoking: Non-smoker Alcohol Use: Rarely Drug Use: None General Adult EDM: Chief Complaint: SUTURE/STAPLE REMOVAL HPI: HPI: Patient is a 49-year-old female who presents approximately 2 weeks after having a wound repaired on her right leg. In the middle of the healing process she developed an infection and was started on antibiotics. She is here today to remove the sutures. She still has 5 days of antibiotics left. She denies any fever chills or sweats. She is not had any drainage from the wound. [] Review of Systems: Review of Systems: Constitutional: Denies fever or chills Eyes: Denies change in visual acuity HENT: Denies nasal congestion or sore throat Respiratory: Denies cough or shortness of breath Cardiovascular: Denies chest pain or edema GI: Denies abdominal pain, nausea, vomiting, bloody stools or diarrhea : Denies dysuria Musculoskeletal: Denies back pain or joint pain Integument: Per HPI Neurologic: Denies headache, focal weakness or sensory changes Endocrine: Denies polyuria or polydipsia Lymphatic: Denies swollen glands Psychiatric: Denies depression or anxiety Heart Score: Risk Factors: Risk Factors: DM, Current or recent (<one month) smoker, HTN, HLP, family history of CAD, obesity. Risk Scores: Score 0 - 3: 2.5% MACE over next 6 weeks - Discharge Home Score 4 - 6: 20.3% MACE over next 6 weeks - Admit for Clinical Observation Score 7 - 10: 72.7% MACE over next 6 weeks - Early Invasive Strategies Allergies: Allergies: Allergies Coded Allergies Type Severity Reaction Last Updated Verified No Known Drug Allergies 04/15/18 No Physical Exam: PE: Constitutional: Well developed, well nourished, no acute distress, non-toxic appearance. [] HENT: Normocephalic, atraumatic, bilateral external ears normal, oropharynx moist, no oral exudates, nose normal. [] Eyes: PERRLA, EOMI, conjunctiva normal, no discharge. [] Neck: Normal range of motion, no tenderness, supple, no stridor. [] Cardiovascular:Heart rate regular rhythm, no murmur [] Lungs & Thorax: Bilateral breath sounds clear to auscultation [] Abdomen: Bowel sounds normal, soft, no tenderness, no masses, no pulsatile masses. [] Skin: Warm, dry, no erythema, no rash. [] Back: No tenderness, no CVA tenderness. [] Extremities: No tenderness, no cyanosis, no clubbing, ROM intact, no edema. [] Neurologic: Alert and oriented X 3, normal motor function, normal sensory function, no focal deficits noted. [] Psychologic: Affect normal, judgement normal, mood normal. [] Current Patient Data: Vital Signs: Vital Signs Date Time Temp Pulse Resp B/P (MAP) Pulse Ox O2 Delivery O2 Flow Rate FiO2 09/03/19 11:04 98.6 90 18 164/87 (112) 96 Room Air EKG: EKG: [] Radiology/Procedures: Radiology/Procedures: [] Course & Med Decision Making: Course & Med Decision Making Pertinent Labs and Imaging studies reviewed. (See chart for details) [Suture removal: We removed 26 sarah and 6 sutures from the wound there is sti ll some surrounding erythema but no evidence of abscess otherwise healing well I informed the patient that she needs to continue her antibiotics.] Dragon Disclaimer: Dragon Disclaimer: This electronic medical record was generated, in whole or in part, using a voice recognition dictation system. Departure Departure: Impression: Primary Impression: Encounter for removal of sutures Disposition: 01 HOME/RESIDENCE PRIOR TO ADM Condition: STABLE Referrals: TRINY MORAN (PCP) Patient Instructions: Suture Removal Additional Instructions: Continue antibiotics as prescribed. Return to the emergency department with any new or concerning symptoms DELMIS RAO DO Sep 03, 2019 11:26
== END 2019-09-03 11:30 | disposition home or self-care (01) ==
LOC: ER 10:52
DX: S81.811D Laceration without foreign body, right lower leg, subsequent encounter (principal); I48.91 Unspecified atrial fibrillation; M19.90 Unspecified osteoarthritis, unspecified site; J45.909 Unspecified asthma, uncomplicated; E66.01 Morbid (severe) obesity due to excess calories; Z68.43 Body mass index [BMI] 50.0-59.9, adult; X58.XXXD Exposure to other specified factors, subsequent encounter
CPT/HCPCS: 99281

== ENCOUNTER → 2019-12-03 | Outpatient (CLI) | payer OTHER ==
--- NOTE | 2019-12-03 16:27 | RAD ---
EXAMINATION: HIP LEFT 2V WITH PELVIS CLINICAL HISTORY: Left hip pain TECHNIQUE: HIP LEFT 2V WITH PELVIS Number of different views (projections): 3 COMPARISON: 06/27/2019 FINDINGS: Joint spaces and alignment of the left hip relatively well-maintained with minimal marginal osteophytes. Similar findings noted in the right hip on limited evaluation. Pubic symphysis and SI joints maintained. Partially visualized lumbar degenerative changes. No acute fracture. IMPRESSION: No acute osseous abnormality. Electronically signed by: Jesús Daniels DO (12/03/2019 4:24 PM) [id number]
== END | disposition home or self-care (01) ==
LOC: RAD 11:18
PROVIDERS: ATTEND Physician Assistant Medical
DX: M25.752 Osteophyte, left hip (principal); M47.816 Spondylosis without myelopathy or radiculopathy, lumbar region
CPT/HCPCS: 73502

== ENCOUNTER → 2019-12-25 | Outpatient (CLI) | payer OTHER ==
[2019-12-25 16:34] LABS: ALBUMIN 3.4 g/dL (3.4-5.0); ALBUMIN/GLOBULIN RATIO 0.8 (1.0-1.7); CALCIUM 8.9 mg/dL (8.5-10.1); GFR 58.9; POTASSIUM 3.9 mmol/L (3.5-5.1); TOTAL BILIRUBIN 0.4 mg/dL (0.2-1.0); TOTAL PROTEIN 7.5 g/dL (6.4-8.2)
== END | disposition home or self-care (01) ==
LOC: LAB 15:42
PROVIDERS: ATTEND Internal Medicine Cardiovascular Disease
DX: I48.0 Paroxysmal atrial fibrillation (principal)
CPT/HCPCS: 36415; 80053